=== PATIENT | female | born 1970 | race Caucasian/White ===

== ENCOUNTER 2016-07-03 10:45 | Emergency (ER) | payer OTHER ==
[~2016-07-03] VITALS: Ht 165.1 cm; Wt 123.0 kg
[2016-07-03 12:28] LABS: COLOR RED ((YELLOW))
[2016-07-03 12:29] LABS: BILIRUBIN NEGATIVE; GLUCOSE (STRIP) NEGATIVE; KETONES NEGATIVE
[2016-07-03 12:30] LABS: BLOOD LARGE; NITRITE NEGATIVE; PROTEIN (STRIP) 30; SPECIFIC GRAVITY 1.025 (1.000-1.030); UROBILINOGEN 0.2 MG/DL (0.2-1.0)
[2016-07-03 12:31] LABS: ADD MIUA? YES; LEUKOCYTES NEGATIVE
[2016-07-03 12:32] LABS: RED BLOOD CELLS TNTC /HPF (0-5); UCUL ADDED? YES
[2016-07-03 12:59] LABS: HEMATOCRIT 37.6 % (36.0-46.0); MCH 26.1 PG (29.0-34.0); MCHC 31.4 G/DL (30.0-36.0); MCV 83.2 FL (83-99); MEAN PLAT.VOLUME 9.8 uM^3 (9.5-12.4); PLATELET COUNT 344 K/uL (156-360); RBC DIS.WIDTH-CV 14.6 % (11.8-14.6); RED BLOOD COUNT 4.52 M/uL (3.80-5.20); WHITE BLOOD COUNT 6.2 K/uL (4.1-10.2)
[2016-07-03] MEDS ORDERED: LISINOPRIL-HCT1 EACH PO (13:11)
[2016-07-03] MEDS ORDERED: MELOXICAM7.5 MG PO (13:11)
[2016-07-03 13:15] LABS: CHLORIDE 102 mEq/L (99-109)
[2016-07-03 13:16] LABS: SODIUM 136 mEq/L (136-147)
[2016-07-03 13:17] LABS: GLUCOSE 81 mg/dL (70-99)
[2016-07-03 13:19] LABS: ANION GAP 11 MEQ/L (2-14)
[2016-07-03 13:21] LABS: GFR ESTIMATE (CALCULATED) > 59 mL/min/
[2016-07-03 13:22] LABS: UREA NITROGEN (BUN) 15 mg/dL (9-23)
[2016-07-03 13:31] LABS: QUANTITATIVE HCG < 4.0 MIU/ML
[2016-07-03 17:05] VITALS: BP 141/83
== END 2016-07-03 17:29 | disposition home or self-care (01) ==
LOC: EME 10:45
PROVIDERS: Nurse Practitioner Family
DX: D25.9 Leiomyoma of uterus, unspecified (principal); N93.8 Other specified abnormal uterine and vaginal bleeding; Z87.891 Personal history of nicotine dependence
CPT/HCPCS: 76856; 80048; 81003; 84702; 85027; 87077; 87086; 87186; 99281; 99284